=== PATIENT | male | born 1950 | race Caucasian/White ===

== ENCOUNTER → 2022-01-19 14:54 | Outpatient (BNVA) | payer MEDICARE, SELFPAY | PROVIDERS: PCP Internal Medicine; Visit Provider Psychiatry & Neurology Neurology | DX: R52 Pain, unspecified (principal); E11.40 Type 2 diabetes mellitus with diabetic neuropathy, unspecified | CPT/HCPCS: 99202 ==

== ENCOUNTER → 2022-02-21 08:18 | Outpatient (BNVA) | payer MEDICARE, SELFPAY | PROVIDERS: PCP Internal Medicine; Visit Provider Nurse Practitioner Family | DX: M54.14 Radiculopathy, thoracic region (principal); M47.814 Spondylosis without myelopathy or radiculopathy, thoracic region; E11.40 Type 2 diabetes mellitus with diabetic neuropathy, unspecified | CPT/HCPCS: 99202 ==

== ENCOUNTER → 2022-04-27 09:59 | Outpatient (BNVA) | payer MEDICARE, SELFPAY | PROVIDERS: PCP Internal Medicine; Visit Provider Psychiatry & Neurology Neurology | DX: E11.40 Type 2 diabetes mellitus with diabetic neuropathy, unspecified (principal); M47.814 Spondylosis without myelopathy or radiculopathy, thoracic region; M54.14 Radiculopathy, thoracic region | CPT/HCPCS: 99212 ==

== ENCOUNTER → 2022-05-11 11:20 | Outpatient (BNVA) | payer MEDICARE, SELFPAY | PROVIDERS: PCP Internal Medicine; Visit Provider Internal Medicine | DX: M79.18 Myalgia, other site (principal); G58.8 Other specified mononeuropathies; M47.814 Spondylosis without myelopathy or radiculopathy, thoracic region; E11.40 Type 2 diabetes mellitus with diabetic neuropathy, unspecified | CPT/HCPCS: 20552; 20553; 99202; J2795 ==

== ENCOUNTER → 2022-09-07 09:03 | Outpatient (BNVA) | payer MEDICARE, SELFPAY | PROVIDERS: PCP Internal Medicine; Visit Provider Internal Medicine | DX: M54.14 Radiculopathy, thoracic region (principal); E11.40 Type 2 diabetes mellitus with diabetic neuropathy, unspecified | CPT/HCPCS: 99212 ==

== ENCOUNTER 2023-02-20 10:06 | Day surgery (SDC) | payer MEDICARE, SELFPAY ==
[2023-02-15 14:37] VITALS: BMI 26.5
--- NOTE | 2023-02-19 09:40 | HO.ANESPROP2 ---
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 (Acute) Past Medical History Medical History (Updated 02/15/23 @ 14:35 by Elizabeth Hester RN) Anemia Arthritis CKD (chronic kidney disease) Diabetes Elevated cholesterol Lumbar spondylosis Neuropathy, diabetic Prostate cancer Family History Family History Father Diabetes Skin cancer (melanoma) Stroke Surgical History Surgical History History of back surgery History of lobectomy of thyroid Hx laparoscopic cholecystectomy Hx of hemorrhoidectomy Hx of prostatectomy Social History Social History Alcohol intake: never Patient Tobacco Use Status: Never used Tobacco Meds Allergies Allergy/AdvReac Type Severity Reaction Status Date / Time empagliflozin AdvReac Severe ketoacidosi Verified 09/07/22 09:09 [From Jardiance] s Home Medications Medication Instructions Recorded Confirmed Last Taken Type acetaminophen 325 mg tablet 325 mg PO QID PRN Pain 01/19/22 02/15/23 Unknown History atorvastatin 40 mg tablet (Lipitor) 40 mg PO BEDTIME 01/19/22 02/15/23 Unknown History blood sugar diagnostic (Accutrend 01/19/22 04/27/22 Unknown History Glucose test strips) blood-glucose meter (Accu-Chek 01/19/22 04/27/22 Unknown History Guide Glucose Meter) cholecalciferol (vitamin D3) 50 50 mcg PO DAILY 01/19/22 02/15/23 Unknown History mcg (2,000 unit) capsule coenzyme Q10 75 mg capsule (Ultra 300 mg PO DAILY 01/19/22 02/15/23 Unknown History CoQ10) gabapentin 600 mg tablet 600 mg PO BID 01/19/22 02/15/23 Unknown History insulin glargine 100 unit/mL (3 22 unit subcut BID 01/19/22 02/15/23 Unknown History mL) subcutaneous pen (Lantus Solostar U-100 Insulin) pen needle, diabetic 31 gauge x 01/19/22 04/27/22 Unknown History 1/4 (1st Tier Unifine Pentips Plus) semaglutide 1 mg/dose (4 mg/3 mL) 0.5 mg subcut QWEEK 01/19/22 02/15/23 Unknown History subcutaneous pen injector tafluprost (PF) 0.0015 % eye drops 1 drp ophthalmic (eye) .twiceaday 01/19/22 02/15/23 Unknown History in a dropperette (Zioptan (PF)) fluoride (sodium) 1.1 % dental 1 appl PO BID 04/27/22 02/15/23 Unknown History cream (Denta 5000 Plus) lidocaine 5 % topical patch 1 patch topical DAILY 04/27/22 02/15/23 Unknown History vitamin B complex (B 1 tab PO DAILY 04/27/22 02/15/23 Unknown History Complex-Vitamin B12 tablet) venlafaxine 37.5 mg 37.5 mg PO DAILY 09/07/22 02/15/23 Unknown History capsule,extended release 24 hr Exam Exam Date and Time: February 19, 2023 0940 Height,Weight and Vital Signs: Height 5 ft 10 in Weight 83.915 kg Assessment and Plan Assessment Anesthesia Assessment: Chart Reviewed
--- NOTE | ~2023-02-20 | FL_ITS ---
EXAMINATION: XR FLUOROSCOPY WITH IMAGES CLINICAL INFORMATION: Spinal STIM trial. COMPARISON: None available. TECHNIQUE: Fluoroscopy Supervised By: Dr. Jack Allison. Fluoroscopy Time: 3.6 minutes. Cumulative Dose: 82.3 mGy. DAP: 9.19 Gycm2. Images: 2. FINDINGS: There are 2 digital images of thoracic spine revealing posterior epidural electrodes at T8 and T9 vertebra respectively. There is loss of disc height with spondylosis in mid and lower dorsal spine. No lytic or sclerotic process seen. FL/FL guidance in OR IMPRESSION: 1. Posterior epidural electrodes at T8 and T9 vertebra. 2. Degenerative disc changes with spondylosis in mid and lower dorsal spine. 3. Fluoroscopy guidance was provided to referring physician during pain management.
--- NOTE | 2023-02-20 11:17 | HO.ANESPROP2 ---
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 (Acute) Past Medical History Medical History (Updated 02/15/23 @ 14:35 by Elizabeth Hester RN) Anemia Arthritis CKD (chronic kidney disease) Diabetes Elevated cholesterol Lumbar spondylosis Neuropathy, diabetic Prostate cancer Family History Family History Father Diabetes Skin cancer (melanoma) Stroke Family history of problems with anesthesia: No Surgical History Surgical History History of back surgery History of lobectomy of thyroid Hx laparoscopic cholecystectomy Hx of hemorrhoidectomy Hx of prostatectomy History of Problems with Anesthesia: No Social History Social History Alcohol intake: never Patient Tobacco Use Status: Never used Tobacco Meds Allergies Allergy/AdvReac Type Severity Reaction Status Date / Time empagliflozin AdvReac Severe ketoacidosi Verified 02/20/23 11:14 [From Jardiance] s Active Medications: Current Medications Lactated Ringer's (Lr) 1,000 mls @ 100 mls/hr IVCONT .Q10H [facility] Home Medications Medication Instructions Recorded Confirmed Last Taken Type acetaminophen 325 mg tablet 325 mg PO QID PRN Pain 01/19/22 02/15/23 Unknown History atorvastatin 40 mg tablet (Lipitor) 40 mg PO BEDTIME 01/19/22 02/15/23 Unknown History blood sugar diagnostic (Accutrend 01/19/22 04/27/22 Unknown History Glucose test strips) blood-glucose meter (Accu-Chek 01/19/22 04/27/22 Unknown History Guide Glucose Meter) cholecalciferol (vitamin D3) 50 50 mcg PO DAILY 01/19/22 02/15/23 Unknown History mcg (2,000 unit) capsule coenzyme Q10 75 mg capsule (Ultra 300 mg PO DAILY 01/19/22 02/15/23 Unknown History CoQ10) gabapentin 600 mg tablet 600 mg PO BID 01/19/22 02/15/23 Unknown History insulin glargine 100 unit/mL (3 22 unit subcut BID 01/19/22 02/15/23 Unknown History mL) subcutaneous pen (Lantus Solostar U-100 Insulin) pen needle, diabetic 31 gauge x 01/19/22 04/27/22 Unknown History 1/4 (1st Tier Unifine Pentips Plus) semaglutide 1 mg/dose (4 mg/3 mL) 0.5 mg subcut QWEEK 01/19/22 02/15/23 Unknown History subcutaneous pen injector tafluprost (PF) 0.0015 % eye drops 1 drp ophthalmic (eye) .twiceaday 01/19/22 02/15/23 Unknown History in a dropperette (Zioptan (PF)) fluoride (sodium) 1.1 % dental 1 appl PO BID 04/27/22 02/15/23 Unknown History cream (Denta 5000 Plus) lidocaine 5 % topical patch 1 patch topical DAILY 04/27/22 02/15/23 Unknown History vitamin B complex (B 1 tab PO DAILY 04/27/22 02/15/23 Unknown History Complex-Vitamin B12 tablet) venlafaxine 37.5 mg 37.5 mg PO DAILY 09/07/22 02/15/23 Unknown History capsule,extended release 24 hr Exam Exam Date and Time: February 20, 2023 1117 Height,Weight and Vital Signs: Height 5 ft 10 in Weight 83.915 kg Airway Mallampati Class: II TM Dist: >3cm Neck ROM: Full Assessment and Plan Assessment Anesthesia Assessment: Anesthesia Plan Discussed and Chart Reviewed Final Anesthetic Review Family History of Problems with Anesthesia: No History of Problems with Anesthesia: No NPO: Yes ASA Class: III Final Preanesthetic Review: No Changes in Pt Med Stat, Meds/Allgs Chart Reviewed, Consent Obtained/Reviewed and Anes Risks/Benef Reviewed Patient Risk: Intermediate Procedure Risk: Low Anesthetic Plan Anesthetic Plan: MAC: Disposition: Standard PACU
[2023-02-20 11:24] LABS: Hematocrit 41.8 % (42.0-52.0); Hemoglobin 13.9 g/dl (14.0-18.0); Mean Corpuscular HGB Conc 33.3 g/dl (31.0-36.0); Mean Corpuscular Volume 87.3 fL (80.0-98.0); Mean Platelet Volume 10.6 fL (9.4-12.4); Platelet Count 198 X10*3/uL (160-400); Red Blood Count 4.79 X10*6/uL (4.60-5.80); Red Cell Distribution Width 12.6 % (11.0-16.0); White Blood Count 8.3 X10*3/uL (4.8-10.8)
[2023-02-20 11:32] VITALS: BP 154/92; PULSE 68; RESP 16; TEMP 36.4; O2SAT 98
[2023-02-20 11:47] LABS: Anion Gap 13 (12-20); Blood Urea Nitrogen 31 mg/dL (9-16); Calcium 10.3 mg/dL (8.4-10.2); Carbon Dioxide 27 mmol/L (22-29); Chloride 107 mmol/L (96-108); Estimated Glomerular Filt Rate 39; Glucose Fasting 131 mg/dL (60-99); Potassium 4.6 mmol/L (3.3-5.1); Sodium 142 mmol/L (135-145)
[2023-02-20 11:48] LABS: Glucose, Whole Blood 142 mg/dL (60-115)
[2023-02-20 12:42] LABS: MRSA Nasal PCR NEGATIVE (Negative); SA Nasal PCR NEGATIVE (Negative)
--- NOTE | 2023-02-20 12:58 | MHC.SHP ---
Pre-Procedural Eval Section A Date of Service: 02/20/23 The patient is an INPATIENT: No Changes since office visit: Yes Patient answered all questions The History & Physical has been completed within 30 days and I have reviewed it.: No Section B Chief Complaint: Type 2 diabetes mellitus with diabetic neuropathy, Relevant Family History (Specify if Yes): No Relevant Social History: None Present Medications: see Short Stay Collaborative assessment Medical History: Significant History (Painful diabetic neuropathy) History of Previous Operations: No relevant previous surgery Allergies: Allergies Allergy/AdvReac Type Severity Reaction Status Date / Time empagliflozin AdvReac Severe ketoacidosi Verified 02/20/23 11:14 [From Sheldon] s Review of Systems Sugical H&P ROS: Negative: Constitution, Cardiovascular and Respiratory Exam Surgical H&P Exam: Normal: HEENT, Normal: Heart and Normal: Lungs Plan Diagnosis/Plan: Unchanged I have reviewed the history and physical and performed a pertinent physical examination on my patient. No changes have occurred unless specified. Proceed with trial of thoracolumbar spinal cord stimulation for painful diabetic neuropathy and intractable thoracic radiculopathy. Time Spent With Patient Time: Total time managing care of this patient today ____ minutes.
[2023-02-20 15:05] VITALS: BP 146/72; PULSE 67; RESP 14; TEMP 36.3; O2SAT 100
[2023-02-20 15:20] VITALS: BP 157/73; PULSE 64; RESP 16; TEMP 36.3; O2SAT 95
--- NOTE | 2023-02-20 16:47 | P.BOP_ITS ---
Brief Operative Note Date of Service: 02/20/23 Pre-op diagnosis: Painful diabetic neuropathy Post-op diagnosis: same Procedure: Spinal cord stimulation trial Implants: Nevro HFX SCS trial leads Surgeon: Jack Allison MD Anesthesia: MAC Was an Concrete Bucket Hooker used for this Procedure?: No Estimated blood loss (mL): 2 Pathology: none sent Condition: stable Disposition: PACU
--- NOTE | 2023-02-20 16:48 | W.PM.OPN ---
Operative Note Operative Note Date of Service: 02/20/23 Narrative: Percutaneous Spinal Cord Stimulator Trial, Lumbar After obtaining written consent, pre-procedure blood pressure and heart rate were recorded and are in the nursing record for review. A peripheral IV was started. Antibiotics, cefazolin 2 gram, were given intraoperatively. The patient was placed in a prone position.?The patient was sedated by the anesthesiologist. The thoracolumbar area was widely prepped with ChloraPrep, allowed to dry and draped in sterile fashion. Fluoroscopy was used to identify the L1/L2 interlaminar spaces and appropriate needle insertion sites. The skin and subcutaneous tissue was anesthetized with 0.5% lidocaine. Two separate 14 gauge coude epidural needles were then advanced from this point in a paramedian approach to the epidural space opening at T12/L1 interspace, where loss of resistance was found using air. No paresthesias were elicited with needle placement. No CSF or heme was present upon needle placement. A guide wire was then used to confirm placement into the epidural space at each level under live fluoroscopy. The 1x8 stimulator lead wire was then threaded to the top of T8 in the left parasagittal position. The 2nd lead was threaded in the right parasagittal position such that the bottom electrode was at the top of T12. The leads advanced midline and dorsally.?The needles were then completely removed under live fluoroscopy. The stimulator wires were then secured with 2-0 silk sutures to the skin, followed by Exofin, steristrips, gauze and tegaderm for skin dressing. The patient tolerated the procedure well and no complications were encountered. Following the procedure the patient's vital signs were stable. The patient was discharged home in good condition after being given discharge instructions. Time Out: Immediately prior to the procedure, the following was verbally confirmed that there is a signed consent form and that the correct patient, planned procedure, site and side are consistent with documentation and that necessary equipment and/or blood products are available prior to the start of the case. Complications: none EBL: <2 cc
== END 2023-02-20 15:35 | disposition home or self-care (01) ==
PROVIDERS: Nurse Practitioner; Registered Nurse Emergency; PCP Internal Medicine; Visit Provider Internal Medicine
PROC: (CPT 63650; principal; 2023-02-20 11:40)
DX: E11.40 Type 2 diabetes mellitus with diabetic neuropathy, unspecified (principal); M54.14 Radiculopathy, thoracic region; M79.606 Pain in leg, unspecified; E11.22 Type 2 diabetes mellitus with diabetic chronic kidney disease; N18.9 Chronic kidney disease, unspecified; M47.816 Spondylosis without myelopathy or radiculopathy, lumbar region; M19.90 Unspecified osteoarthritis, unspecified site; Z79.4 Long term (current) use of insulin; Z79.899 Other long term (current) drug therapy; Z88.8 Allergy status to other drugs, medicaments and biological substances; Z98.890 Other specified postprocedural states; C61 Malignant neoplasm of prostate
CPT/HCPCS: 63650 ×2; 36415; 80048; 82947; 85027; 87640; 87641; C1897; J0690; J2250; J2795

== ENCOUNTER → 2023-02-20 10:06 | Outpatient (BNV) | payer MEDICARE, SELFPAY | PROVIDERS: PCP Internal Medicine; Visit Provider Internal Medicine | DX: E11.40 Type 2 diabetes mellitus with diabetic neuropathy, unspecified (principal) | CPT/HCPCS: 63650 ==

== ENCOUNTER 2023-02-26 09:39 | Outpatient (AMB) | payer MEDICARE, SELFPAY ==
--- NOTE | 2023-02-26 10:04 | MHC.OFFVIS ---
Intake Vital Signs 02/26/23 10:05 Height 5 ft 10 in Weight 184 lb 8 oz BMI 26.5 BP 136/61 Blood Pressure Location Lt brachial Position Sitting Respiration 14 Pulse 68 Pulse Source Pulse Oximeter Pulse Oximetry (%) 99 Oxygen Delivery Method Room Air Intake Visit Reasons: s/p Lumbar SCS Trial 02/20/23 Allergies empagliflozin [From Jardiance] Adverse Reaction (Severe, Verified 02/26/23 10:07) ketoacidosis HPI HPI Comments History of Present Illness Details Nahid is a very pleasant 72 year old male who presents to the office today accompanied by his for follow up s/p nevro SCS trial 02/20/2023. Nevro rep was not available/present during visit today. Patient reports pain today is 03/24, he did not receive any pain relief during the trial for either his diabetic peripheral neuropathy or his thoracic back pain. Prior: Patient is a 71-year-old male presenting for follow-up discussion regarding spinal cord stimulation with questions regarding the procedure. The patient denies having any benefit from the trigger point injection that was done for potential entrapment of the anterior cutaneous nerve. He continues to have significant lower extremity in for pain secondary to diabetic neuropathy. He is primarily concerned of spinal cord stimulation is going to be helpful for his thoracic spine related pain that is radicular in nature. [facility] Medical History (Updated 02/20/23 @ 11:19 by Mary Ellen Engle RN) Anemia Arthritis CKD (chronic kidney disease) Diabetes Elevated cholesterol Lumbar spondylosis Neuropathy, diabetic Prostate cancer Surgical History History of back surgery History of lobectomy of thyroid Hx laparoscopic cholecystectomy Hx of hemorrhoidectomy Hx of prostatectomy Family History Father Diabetes Skin cancer (melanoma) Stroke Social History Alcohol intake: never Patient Tobacco Use Status: Never used Tobacco Review of Systems Const All systems reviewed & are unremarkable except as noted in HPI and below Physical Exam Vital Signs: Last Vital Signs Pulse 68 02/26/23 10:05 Resp 14 02/26/23 10:05 BP 136/61 02/26/23 10:05 Pulse Ox 99 02/26/23 10:05 Oxygen Delivery Method Room Air 02/26/23 10:05 BMI result Body Mass Index 26.5 General: Appears afebrile. Alert and oriented. Mood and affect appropriate. Follows and participates in conversation appropriately. Respiratory effort is unlabored. Able to transition from sit to stand unassisted. Ambulates with bilaterally normal heel strike and toe off. Nevro SCS removal: Area was cleansed with chloraprep, dressing was taken down, insertion site was visualized and without redness/irritation/drainage. Sutures were then removed and both leads withdrawn without resistance; leads examined and noted to be without concern, tips intact. Area cleansed again, bacitracin dressing was applied and covered with tegaderm. Assessment & Plan Assessment & Plan (1) Painful diabetic neuropathy: Code(s): E11.40 - Type 2 diabetes mellitus with diabetic neuropathy, unspecified (2) Thoracic radiculitis: Code(s): M54.14 - Radiculopathy, thoracic region Plan Patient did not receive adequate pain relief during SCS trial. Leads were removed today, incision sites without signs of infection. Patient will not be proceeding with Nevro SCS implant d/t inadequate pain relief. Discussed options for treatment today including Qutenza and SCS with [facility]. Pamphlets provided to patient. Patient would like to follow up in the office with Dr. Allison prior to committing to another SCS trial. Follw up with Dr. Allison as planned. Coding Level of Care Code Global (51687) Diagnoses Painful diabetic neuropathy E11.40 Thoracic radiculitis M54.14
[2023-02-26 10:05] VITALS: BP 136/61; PULSE 68; RESP 14; O2SAT 99; BMI 26.5
== END 2023-02-26 10:26 | disposition home or self-care (01) ==
PROVIDERS: PCP Internal Medicine; Visit Provider Registered Nurse Emergency
DX: M54.14 Radiculopathy, thoracic region (principal); E11.40 Type 2 diabetes mellitus with diabetic neuropathy, unspecified
CPT/HCPCS: 99024

== ENCOUNTER → 2023-02-26 09:39 | Outpatient (BNVA) | payer MEDICARE, SELFPAY | PROVIDERS: PCP Internal Medicine; Visit Provider Registered Nurse Emergency ==

== ENCOUNTER 2023-03-08 09:52 | Outpatient (AMB) | payer MEDICARE, SELFPAY ==
[2023-03-08 09:53] VITALS: BP 116/64; PULSE 61; RESP 14; O2SAT 100; BMI 26.4
--- NOTE | 2023-03-08 09:53 | MHC.OFFVIS ---
Intake Vital Signs 03/08/23 09:53 Height 5 ft 10 in Weight 184 lb BMI 26.4 BP 116/64 Blood Pressure Location Lt brachial Position Sitting Respiration 14 Pulse 61 Pulse Source Pulse Oximeter Pulse Oximetry (%) 100 Oxygen Delivery Method Room Air Intake Visit Reasons: Follow Up per Tate Greenfield Allergies empagliflozin [From Jardiance] Adverse Reaction (Severe, Verified 03/08/23 09:54) ketoacidosis Medication List - Last Reconciled 03/08/23 by Martha Payan LPN acetaminophen 325 mg PO QID PRN atorvastatin (Lipitor) 40 mg PO BEDTIME blood sugar diagnostic (Accutrend Glucose test strips) As directed blood-glucose meter (Accu-Chek Guide Glucose Meter) As directed cholecalciferol (vitamin D3) 50 mcg PO DAILY coenzyme Q10 (Ultra CoQ10) 300 mg PO DAILY fluoride (sodium) 1.1% (Denta 5000 Plus) 1 appl PO BID gabapentin 600 mg PO BID insulin glargine (Lantus Solostar U-100 Insulin) 22 units subcut BID lidocaine 5% 1 patch topical DAILY pen needle, diabetic (1st Tier Unifine Pentips Plus) As directed semaglutide 0.5 mg subcut QWEEK tafluprost (PF) (Zioptan (PF)) 1 drp ophthalmic (eye) .twiceaday HPI Follow Up per Tate Greenfield HPI Details 72-year-old male is presenting today for a follow-up of mid-back pain and foot pain. The patient reports no relief status post-Nervo percutaneous spinal cord stimulator implant trial for either his diabetic peripheral neuropathy or his thoracic back pain. He reports pain in his mid-back region, which he describes as a tight band around his thoracic region. ? He inquired and interested about trying Qutenza patches for foot pain. He visited his primary care physician in [place]. Per the primary care physician, the patient's abdominal symptoms are secondary to post-herpetic neuralgia. The patient denies any history of shingles in the past. He has tried capsaicin cream but has not tolerated it well. Past procedures: 02/20/23: Percutaneous Spinal Cord Stimulator Trial, Lumbar: no relief. 05/14/22: Trigger point injections, bilateral: no relief. [facility] Medical History (Updated 02/20/23 @ 11:19 by Mary Ellen Engle RN) Anemia Arthritis CKD (chronic kidney disease) Diabetes Elevated cholesterol Lumbar spondylosis Neuropathy, diabetic Prostate cancer Surgical History History of back surgery History of lobectomy of thyroid Hx laparoscopic cholecystectomy Hx of hemorrhoidectomy Hx of prostatectomy Family History Father Diabetes Skin cancer (melanoma) Stroke Social History Alcohol intake: never Patient Tobacco Use Status: Never used Tobacco Review of Systems Const All systems reviewed & are unremarkable except as noted in HPI and below Physical Exam Vital Signs: Last Vital Signs Pulse 61 03/08/23 09:53 Resp 14 03/08/23 09:53 BP 116/64 03/08/23 09:53 Pulse Ox 100 03/08/23 09:53 Oxygen Delivery Method Room Air 03/08/23 09:53 BMI result Body Mass Index 26.4 General: Appears afebrile. Alert and oriented. Mood and affect appropriate. Follows and participates in conversation appropriately. Respiratory effort is unlabored. Able to transition from sit to stand unassisted. Ambulates with bilaterally normal heel strike and toe off. Results Reviewed Results Reviewed: No imaging is available for review. Assessment & Plan Assessment & Plan (1) Diabetic neuropathy: Code(s): E11.40 - Type 2 diabetes mellitus with diabetic neuropathy, unspecified (2) Thoracic radiculitis: Code(s): M54.14 - Radiculopathy, thoracic region Plan Discussed spinal cord stimulator ([employer]tr[employer]) vs. peripheral nerve stimulator for thoracic radicular symptoms in the future. The patient would like to hold off on it for now, and he will get back to us when he is ready to move forward. Will start with the trial of topical capsaicin 8% treatment for his diabetic neuropathy in his feet. Patient is previously exhausted high-dose gabapentin and trial of spinal cord stimulation without relief. Scribed for Dr. Allison by Qamar Masterson, medical technical writer, on 03/08/2023. I, Dr. Allison, have personally reviewed and agree with the information entered by the scribe. Coding Level of Care Code Est Pt Level 3 (57377) Diagnoses Diabetic neuropathy E11.40 Thoracic radiculitis M54.14
== END 2023-03-08 10:34 | disposition home or self-care (01) ==
PROVIDERS: PCP Internal Medicine; Visit Provider Internal Medicine
DX: E11.40 Type 2 diabetes mellitus with diabetic neuropathy, unspecified (principal); M54.14 Radiculopathy, thoracic region
CPT/HCPCS: 99213

== ENCOUNTER → 2023-03-08 09:52 | Outpatient (BNVA) | payer MEDICARE, SELFPAY | PROVIDERS: PCP Internal Medicine; Visit Provider Internal Medicine | DX: M54.14 Radiculopathy, thoracic region (principal); E11.40 Type 2 diabetes mellitus with diabetic neuropathy, unspecified | CPT/HCPCS: 99212 ==

== ENCOUNTER 2023-04-01 09:52 | Outpatient (AMB) | payer MEDICARE, SELFPAY ==
[2023-04-01 09:59] VITALS: BP 135/65; PULSE 103; RESP 14; O2SAT 97; BMI 25.8
--- NOTE | 2023-04-01 09:59 | MHC.OFFVIS ---
Intake Vital Signs 04/01/23 09:59 04/01/23 10:24 04/01/23 10:43 Height 5 ft 10 in Weight 180 lb BMI 25.8 BP 135/65 124/62 118/62 Blood Pressure Location Lt brachial Lt brachial Lt brachial Position Sitting Sitting Sitting Respiration 14 Pulse 103 H 69 68 Pulse Source Pulse Oximeter Pulse Oximeter Pulse Oximeter Pulse Oximetry (%) 97 Oxygen Delivery Method Room Air Intake Visit Reasons: Qutenza - DN Allergies empagliflozin [From Jardiance] Adverse Reaction (Severe, Verified 04/01/23 09:59) ketoacidosis Medication List - Last Reconciled 04/01/23 by Martha Payan LPN acetaminophen 325 mg PO QID PRN atorvastatin (Lipitor) 40 mg PO BEDTIME blood sugar diagnostic (Accutrend Glucose test strips) As directed blood-glucose meter (Accu-Chek Guide Glucose Meter) As directed cholecalciferol (vitamin D3) 50 mcg PO DAILY coenzyme Q10 (Ultra CoQ10) 300 mg PO DAILY fluoride (sodium) 1.1% (Denta 5000 Plus) 1 appl PO BID gabapentin 600 mg PO BID insulin glargine (Lantus Solostar U-100 Insulin) 22 units subcut BID lidocaine 5% 1 patch topical DAILY lidocaine-prilocaine 2.5-2.5 % 1 appl topical ONCE pen needle, diabetic (1st Tier Unifine Pentips Plus) As directed semaglutide 0.5 mg subcut QWEEK tafluprost (PF) 0.0015% (Zioptan (PF)) 1 drp ophthalmic (eye) .twiceaday HPI Qutenza - DN HPI Details 72-year-old male who presents today to the office for topical capsaicin 8% patch application. Denies any recent cough, cold, infection, fever or other significant changes in medical history since last office visit. Past procedures: 02/20/23: Percutaneous Spinal Cord Stimulator Trial, Lumbar: no relief. 05/14/22: Trigger point injections, bilateral: no relief. [facility] Medical History (Updated 04/01/23 @ 15:11 by Jack Allison MD) Elevated cholesterol Lumbar spondylosis Prostate cancer Neuropathy, diabetic CKD (chronic kidney disease) Arthritis Diabetes Anemia Surgical History Hx laparoscopic cholecystectomy History of back surgery Hx of hemorrhoidectomy Hx of prostatectomy History of lobectomy of thyroid Family History Father Diabetes Skin cancer (melanoma) Stroke Social History Alcohol intake: never Patient Tobacco Use Status: Never used Tobacco Review of Systems Const All systems reviewed & are unremarkable except as noted in HPI and below Physical Exam Vital Signs: Last Vital Signs Pulse 68 04/01/23 10:43 Resp 14 04/01/23 09:59 BP 118/62 04/01/23 10:43 Pulse Ox 97 04/01/23 09:59 Oxygen Delivery Method Room Air 04/01/23 09:59 BMI result Body Mass Index 25.8 General: Appears afebrile. Alert and oriented. Mood and affect appropriate. Follows and participates in conversation appropriately. Respiratory effort is unlabored. Able to transition from sit to stand unassisted. Ambulates with bilaterally normal heel strike and toe off. Office Procedures Topical Capsaicin Date(s) of prior application(s): EMLA Cream (lidocaine 2.5% and prilocaine 2.5%) was applied at home by patient prior to application of the patches. The patient tolerated the procedure well. Patient's vitals signs remained stable throughout the procedure. Patient was able to complete the stipulated 30 minutes of the therapeutic application without any discomfort. Date 1:: 04/01/23 Laterality: Bilateral Location of left foot pain: Anterior, Posterior, Plantar, Proximal, Dorsal, Medial, Lateral and Distal Location of right foot pain: Anterior, Posterior, Plantar, Proximal, Dorsal, Medial, Lateral and Distal Quality of pain: Burning Details:: EMLA Cream (lidocaine 2.5% and prilocaine 2.5%) was applied at home by patient prior to application of the patches. The patient tolerated the procedure well. Patient's vitals signs remained stable throughout the procedure. Patient was able to complete the stipulated 30 minutes of the therapeutic application without any discomfort. Office Meds capsaicin-skin cleanser 8 % topical kit Performing Provider: Jack Allison MD Performing Location: [facility] [place] [facility] Administered by: Jack Allison MD on 09/18/23 15:09 Dose Route Admin Location Dispensed Lot Number Expiration Date [facility] Firing Pin Gauger 1 ea topical 1 ea [id number] 07/15/25 Results Reviewed Results Reviewed: No imaging is available for review. Lot No: [id number] Exp Dt. 08/09 Assessment & Plan Assessment & Plan (1) Diabetic neuropathy: Code(s): E11.40 - Type 2 diabetes mellitus with diabetic neuropathy, unspecified Qualifiers: Diabetes mellitus complication detail: diabetic polyneuropathy Diabetes mellitus type: type 2 Qualified Code(s): E11.42 - Type 2 diabetes mellitus with diabetic polyneuropathy Plan Patient is status post 30-minute application of topical capsaicin 8% today at the clinic. Patient tolerated procedure well and was discharged home in stable condition with discharge instructions. All questions were answered. The patient will follow up in three months or sooner if needed. More than 40 minutes were spent for this encounter. Scribed for Dr. Allison by Qamar Masterson, medical support assistant, on 04/01/2023. I, Dr. Allison, have personally reviewed and agree with the information entered by the scribe. Orders: Orders AMB Capsaicin Patch - Practice Supplied Today E11.40 - Type 2 diabetes mellitus with diabetic neuropathy, unspecified Coding Level of Care Code Procedure Only Diagnoses Diabetic polyneuropathy associated with type 2 diabetes mellitus E11.42 Diabetes mellitus complication detail: diabetic polyneuropathy Diabetes mellitus type: type 2
[2023-04-01 10:24] VITALS: BP 124/62; PULSE 69
[2023-04-01 10:43] VITALS: BP 118/62; PULSE 68
== END 2023-04-01 10:45 | disposition home or self-care (01) ==
PROVIDERS: PCP Internal Medicine; Visit Provider Internal Medicine
DX: E11.40 Type 2 diabetes mellitus with diabetic neuropathy, unspecified (principal)
CPT/HCPCS: 17999; 99215

== ENCOUNTER → 2023-04-01 09:52 | Outpatient (BNVA) | payer MEDICARE, SELFPAY | PROVIDERS: PCP Internal Medicine; Visit Provider Internal Medicine | DX: E11.42 Type 2 diabetes mellitus with diabetic polyneuropathy (principal) | CPT/HCPCS: 17999; 99212; J7336 ==

== ENCOUNTER 2023-07-01 10:24 | Outpatient (AMB) | payer MEDICARE, SELFPAY ==
--- NOTE | 2023-07-01 10:26 | MHC.OFFVIS ---
Intake Vital Signs 07/01/23 10:27 07/01/23 10:50 07/01/23 11:18 Height 5 ft 10 in Weight 180 lb BMI 25.8 BP 117/61 130/63 Blood Pressure Location Lt brachial Lt brachial Lt brachial Position Sitting Sitting Sitting Respiration 12 Pulse 88 74 Pulse Source Pulse Oximeter Pulse Oximeter Pulse Oximeter Intake Visit Reasons: QUTENZA-DN/confirmed Allergies empagliflozin [From Jardiance] Adverse Reaction (Severe, Verified 07/01/23 10:36) ketoacidosis HPI QUTENZA-DN/confirmed HPI Details 72-year-old male who presents today to the office for topical capsaicin 8% patch application. Denies any recent cough, cold, infection, fever or other significant changes in medical history since last office visit. The patient reports bilateral back and abdominal pain that makes it feel as if he is having trouble breathing. His pain is localized in the midback region. His pain appears to have started after a cholecystectomy, and since then, it has gotten worse. He rates his pain at 10/10 in intensity. He reports tightness around his chest, which is worse with deep breathing. He has a feeling that ?something is stuck in his back? when he sits or lays down at night. He has a history of DM. He states that his blood sugar level is usuallyWNL. Past procedures: 04/01/23: 30-minute application of topical capsaicin 8%: no relief yet. 02/20/23: Percutaneous Spinal Cord Stimulator Trial, Lumbar: no relief. 05/14/22: Trigger point injections, bilateral: no relief. [facility] Medical History (Updated 04/01/23 @ 15:11 by Jack Allison MD) Elevated cholesterol Lumbar spondylosis Prostate cancer Neuropathy, diabetic CKD (chronic kidney disease) Arthritis Diabetes Anemia Surgical History Hx laparoscopic cholecystectomy History of back surgery Hx of hemorrhoidectomy Hx of prostatectomy History of lobectomy of thyroid Family History Father Diabetes Skin cancer (melanoma) Stroke Social History Alcohol intake: never Patient Tobacco Use Status: Never used Tobacco Review of Systems Const All systems reviewed & are unremarkable except as noted in HPI and below Physical Exam Vital Signs: Last Vital Signs Pulse 74 07/01/23 11:18 Resp 12 07/01/23 10:27 BP 130/63 07/01/23 11:18 BMI result Body Mass Index 25.8 General: Appears afebrile. Alert and oriented. Mood and affect appropriate. Follows and participates in conversation appropriately. Respiratory effort is unlabored. Able to transition from sit to stand unassisted. Ambulates with bilaterally normal heel strike and toe off. No tenderness to palpation in the thoracolumbar. It is fine in the midline. Office Procedures Topical Capsaicin Date 1:: 04/01/23 Laterality: Bilateral Location of left foot pain: Anterior, Posterior, Plantar, Proximal, Dorsal, Medial, Lateral and Distal Location of right foot pain: Anterior, Posterior, Plantar, Proximal, Dorsal, Medial, Lateral and Distal Quality of pain: Burning, Throbbing and Gnawing Details:: EMLA Cream (lidocaine 2.5% and prilocaine 2.5%) was applied at home by patient prior to application of the patches. The patient tolerated the procedure well. Patient's vitals signs remained stable throughout the procedure. Patient was able to complete the stipulated 30 minutes of the therapeutic application without any discomfort. Office Meds capsaicin-skin cleanser 8 % topical kit Performing Provider: Jack Allison MD Performing Location: [facility] [place] [facility] Administered by: Jack Allison MD on 07/02/23 11:27 Dose Route Admin Location Dispensed Lot Number Expiration Date [facility] Frame Builder 1 ea topical 1 ea [id number] 07/15/25 Results Reviewed Results Reviewed: No imaging is available for review. Assessment & Plan Assessment & Plan (1) Painful diabetic neuropathy: Code(s): E11.40 - Type 2 diabetes mellitus with diabetic neuropathy, unspecified (2) Thoracic radiculitis: Code(s): M54.14 - Radiculopathy, thoracic region Plan Patient is status post second round of 30-minute application of topical capsaicin 8% today at the clinic. We will observe how he does after 2 rounds of application in terms of pain relief. Patient tolerated procedure well and was discharged home in stable condition with discharge instructions. All questions were answered. The patient will follow up in three months or sooner if needed. We discussed intrathecal pain pump as a possible treatment option for the thoracic radicular and abdominal symptoms. It is unclear if this is visceral pain syndrome, given the tightness. A device brochure was provided to the patient. The patient will think about it and inform us after the third round of Qutenza patch treatment about whether he would like to proceed with the ITP. For now we will plan on a 3rd round of Qutenza application in 3 months. More than 40 minutes were spent for this encounter. Scribed for Dr. Allison by Qamar Masterson, certified medical coding specialist, on 07/01/2023. I, Dr. Allison, have personally reviewed and agree with the information entered by the scribe. Orders: Orders AMB Capsaicin Patch - Practice Supplied 07/01/23 E11.40 - Type 2 diabetes mellitus with diabetic neuropathy, unspecified Medications: Refilled lidocaine-prilocaine 2.5-2.5 % apply to both feet 1 hour prior to procedure 1 appl topical ONCE 30 grams 0RF Coding Level of Care Code Est Pt Level 5 (97752) Diagnoses Painful diabetic neuropathy E11.40 Thoracic radiculitis M54.14
[2023-07-01 10:27] VITALS: RESP 12; BMI 25.8
[2023-07-01 10:50] VITALS: BP 117/61; PULSE 88
[2023-07-01 11:18] VITALS: BP 130/63; PULSE 74
== END 2023-07-01 11:16 | disposition home or self-care (01) ==
PROVIDERS: PCP Internal Medicine; Visit Provider Internal Medicine
DX: E11.40 Type 2 diabetes mellitus with diabetic neuropathy, unspecified (principal); M54.14 Radiculopathy, thoracic region
CPT/HCPCS: 17999; 99215

== ENCOUNTER → 2023-07-01 10:24 | Outpatient (BNVA) | payer MEDICARE, SELFPAY | PROVIDERS: PCP Internal Medicine; Visit Provider Internal Medicine | DX: E11.40 Type 2 diabetes mellitus with diabetic neuropathy, unspecified (principal); M54.14 Radiculopathy, thoracic region | CPT/HCPCS: 17999; 99212; J7336 ==

== ENCOUNTER → 2023-09-30 10:54 | Outpatient (BNVA) | payer MEDICARE, SELFPAY | PROVIDERS: PCP Internal Medicine; Visit Provider Internal Medicine | DX: E11.42 Type 2 diabetes mellitus with diabetic polyneuropathy (principal); M54.14 Radiculopathy, thoracic region | CPT/HCPCS: 99212; J7336 ==

== ENCOUNTER → 2023-09-30 11:41 | Outpatient (AMB) | payer MEDICARE, SELFPAY ==
[2023-09-30 11:01] VITALS: BP 130/60; PULSE 73; RESP 12; O2SAT 100; BMI 25.8
--- NOTE | 2023-09-30 11:01 | A.OFFVIS_ITS ---
Intake Vital Signs 09/30/23 11:01 09/30/23 11:18 09/30/23 11:45 Height 5 ft 10 in Weight 180 lb BMI 25.8 BP 130/60 127/68 130/68 Blood Pressure Location Lt brachial Lt brachial Lt brachial Position Sitting Sitting Sitting Respiration 12 Pulse 73 64 80 Pulse Source Pulse Oximeter Pulse Oximeter Pulse Oximeter Pulse Oximetry (%) 100 Oxygen Delivery Method Room Air Intake Visit Reasons: QUTENZA/DN Allergies empagliflozin [From Jardiance] Adverse Reaction (Severe, Verified 09/30/23 11:02) ketoacidosis Medication List - Last Reconciled 09/30/23 by Martha Payan LPN acetaminophen 325 mg PO QID PRN atorvastatin (Lipitor) 40 mg PO BEDTIME blood sugar diagnostic (Accutrend Glucose test strips) As directed blood-glucose meter (Accu-Chek Guide Glucose Meter) As directed cholecalciferol (vitamin D3) 50 mcg PO DAILY coenzyme Q10 (Ultra CoQ10) 300 mg PO DAILY fluoride (sodium) 1.1% (Denta 5000 Plus) 1 appl PO BID gabapentin 600 mg PO BID insulin glargine (Lantus Solostar U-100 Insulin) 22 units subcut BID lidocaine 5% 1 patch topical DAILY lidocaine-prilocaine 2.5-2.5 % 1 appl topical ONCE pen needle, diabetic (1st Tier Unifine Pentips Plus) As directed semaglutide 0.5 mg subcut QWEEK tafluprost (PF) 0.0015% (Zioptan (PF)) 1 drp ophthalmic (eye) .twiceaday HPI QUTENZA/DN HPI Details 72-year-old male who presents today to t he office for a topical capsaicin 8% patch application. Denies any recent cough, cold, infection, fever or other significant changes in medical history since last office visit. The patient reports bilateral back and abdominal pain, which has not improved. He has not tried an intercostal nerve block for abdominal pain. He reports tightness around his subcostal region, which is worse with deep breathing. He still has diabetic neuropathy. He reports burning sensations and heaviness in his feet and is unable to move easily. He feels like his foot is stuck in the bucket of concrete when trying to lift it. Past procedures: 07/01/23: 30-minute application of topic al capsaicin 8%: no relief yet. 04/01/23: 30-minute application of topic al capsaicin 8%: no relief yet. 02/20/23: Percutaneous Spinal Cord Stimula tor Trial, Lumbar: no relief. 05/14/22: Trigger point injections, bila teral: no relief. [facility] Medical History (Updated 04/01/23 @ 15:11 by Jack Allison MD) Elevated cholesterol Lumbar spondylosis Prostate cancer Neuropathy, diabetic CKD (chronic kidney disease) Arthritis Diabetes Anemia Surgical History Hx laparoscopic cholecystectomy History of back surgery Hx of hemorrhoidectomy Hx of prostatectomy History of lobectomy of thyroid Family History Father Diabetes Skin cancer (melanoma) Stroke Social History Alcohol intake: never Patient Tobacco Use Status: Never used Tobacco Review of Systems Const All systems reviewed & are unremarkable except as noted in HPI and below Physical Exam Vital Signs: Last Vital Signs Pulse 64 09/30/23 11:18 Resp 12 09/30/23 11:01 BP 127/68 09/30/23 11:18 Pulse Ox 100 09/30/23 11:01 Oxygen Delivery Method Room Air 09/30/23 11:01 BMI result Body Mass Index 25.8 General: Appears afebrile. Alert and oriented. Mood and affect appropriate. Follows and participates in conversation appropriately. Respiratory effort is unlabored. Able to transition from sit to stand unassisted. Ambulates with bilaterally normal heel strike and toe off. Office Procedures Topical Capsaicin Date 1:: 04/01/23 Date 2:: 07/01/23 Date 3:: 09/30/23 Laterality: Bilateral Location of left foot pain: Anterior, Posterior, Plantar, Proximal, Dorsal, Medial, Lateral and Distal Location of right foot pain: Anterior, Posterior, Plantar, Proximal, Dorsal, Medial, Lateral and Distal Quality of pain: Nagging, Throbbing and Unbearable Details:: EMLA Cream (lidocaine 2.5% and prilocaine 2.5%) was applied at home by patient prior to application of the patches. The patient tolerated the procedure well. Patient's vitals signs remained stable throughout the procedure. Patient was able to complete the stipulated 30 minutes of the therapeutic application without any discomfort. Office Meds capsaicin-skin cleanser 8 % topical kit Performing Provider: Jack Allison MD Per[place] [facility] [place] [facility] Administered by: Martha Payan LPN on 09/30/23 11:12 Dose Route Admin Location Dispensed Lot Number Expiration Date [facility] Roll Cleaner 1 ea topical 1 ea [id number] 12/13/25 27395-867-11 [employer] Results Reviewed Results Reviewed: No imaging is available for review. Assessment & Plan Assessment & Plan (1) Diabetic neuropathy: Code(s): E11.40 - Type 2 diabetes mellitus with diabetic neuropathy, unspecified Qualifiers: Diabetes mellitus complication detail: diabetic polyneuropathy Diabetes mellitus type: type 2 Qualified Code(s): E11.42 - Type 2 diabetes mellitus with diabetic polyneuropathy (2) Thoracic radiculitis: Code(s): M54.14 - Radiculopathy, thoracic region Plan For his subcostal/abdominal wall pain, we will schedule him for bilateral diagnostic T12 intercostal nerve blocks. Discussed the risks and benefits of the procedure with the patient in detail. All questions were answered. The patient is on board with the plan. Patient is status post third round of 30-minute application of topical capsaicin 8% today at the clinic. Patient tolerated procedure well and was discharged home in stable condition with discharge instructions. All questions were answered. Unfortunately he is yet to gain meaningful relief from the capsaicin applications. If he does not get relief from the 3rd round, we will likely discontinue it going forward. I had a discussion with him regarding trial of magnetic PNS for painful diabetic neuropathy. I provided him with contact information to contact the relevant company to see if that therapy can be obtained locally. More than 40 minutes were spent for this encounter. Scribed for Dr. Allison by Qamar Masterson, medical laboratory technicians, on 09/30/2023. I, Dr. Allison, have personally reviewed and agree with the information entered by the scribe. Orders: Orders AMB Capsaicin Patch - Practice Supplied Today E11.40 - Type 2 diabetes mellitus with diabetic neuropathy, unspecified Coding Level of Care Code Est Pt Level 5 (13427) Diagnoses Diabetic polyneuropathy associated with type 2 diabetes mellitus E11.42 Diabetes mellitus complication detail: diabetic polyneuropathy Diabetes mellitus type: type 2 Thoracic radiculitis M54.14
[2023-09-30 11:18] VITALS: BP 127/68; PULSE 64
[2023-09-30 11:45] VITALS: BP 130/68; PULSE 80
== END | disposition home or self-care (01) ==
LOC: HO.PMC 10:54
PROVIDERS: PCP Internal Medicine; Visit Provider Internal Medicine
DX: E11.42 Type 2 diabetes mellitus with diabetic polyneuropathy (principal); M54.14 Radiculopathy, thoracic region
CPT/HCPCS: 99215

== ENCOUNTER 2023-10-18 09:57 | Outpatient (AMB) | payer MEDICARE, SELFPAY ==
[2023-10-18 10:01] VITALS: BP 133/67; PULSE 72; RESP 12; O2SAT 99; BMI 25.8
--- NOTE | 2023-10-18 10:01 | A.OFFVIS_ITS ---
Vital Signs 10/18/23 10:01 Height 5 ft 10 in Weight 180 lb BMI 25.8 BP 133/67 Blood Pressure Location Lt brachial Position Sitting Respiration 12 Pulse 72 Pulse Source Pulse Oximeter Pulse Oximetry (%) 99 Oxygen Delivery Method Room Air Intake Visit Reasons: T12 INTERCOSTAL NB Allergies empagliflozin [From Jardiance] Adverse Reaction (Severe, Verified 10/18/23 10:02) ketoacidosis Medication List - Last Reconciled 10/18/23 by Martha Payan LPN acetaminophen 325 mg PO QID PRN atorvastatin (Lipitor) 40 mg PO BEDTIME blood sugar diagnostic (Accutrend Glucose test strips) As directed blood-glucose meter (Accu-Chek Guide Glucose Meter) As directed cholecalciferol (vitamin D3) 50 mcg PO DAILY coenzyme Q10 (Ultra CoQ10) 300 mg PO DAILY fluoride (sodium) 1.1% (Denta 5000 Plus) 1 appl PO BID gabapentin 600 mg PO BID insulin glargine (Lantus Solostar U-100 Insulin) 22 units subcut BID lidocaine 5% 1 patch topical DAILY lidocaine-prilocaine 2.5-2.5 % 1 appl topical ONCE pen needle, diabetic (1st Tier Unifine Pentips Plus) As directed semaglutide 0.5 mg subcut QWEEK tafluprost (PF) 0.0015% (Zioptan (PF)) 1 drp ophthalmic (eye) .twiceaday HPI HPI T12 INTERCOSTAL NB: Details: 72-year-old male who presents today to the office for a T10 intercostal nerve block. Denies any recent cough, cold, infection, fever or other significant changes in medical history since last office visit. Past procedures: 09/30/23: 30-minute application of topical capsaicin 8%: % relief. 07/01/23: 30-minute application of topical capsaicin 8%: no relief yet. 04/01/23: 30-minute application of topical capsaicin 8%: no relief yet. 02/20/23: Percutaneous Spinal Cord Stimulator Trial, Lumbar: no relief. 05/14/22: Trigger point injections, bilateral: no relief. [facility] Medical History (Updated 11/04/23 @ 12:42 by Jack Allison MD) Elevated cholesterol Lumbar spondylosis Prostate cancer Neuropathy, diabetic CKD (chronic kidney disease) Arthritis Diabetes Anemia Surgical History Hx laparoscopic cholecystectomy History of back surgery Hx of hemorrhoidectomy Hx of prostatectomy History of lobectomy of thyroid Family History Father Diabetes Skin cancer (melanoma) Stroke Social History Alcohol intake: never Patient Tobacco Use Status: Never used Tobacco Review of Systems Const All systems reviewed & are unremarkable except as noted in HPI and below Physical Exam Vital Signs: Last Vital Signs Pulse 72 10/18/23 10:01 Resp 12 10/18/23 10:01 BP 133/67 10/18/23 10:01 Pulse Ox 99 10/18/23 10:01 Oxygen Delivery Method Room Air 10/18/23 10:01 BMI result Body Mass Index 25.8 General: Appears afebrile. Alert and oriented. Mood and affect appropriate. Follows and participates in conversation appropriately. Respiratory effort is unlabored. Able to transition from sit to stand unassisted. Ambulates with bilaterally normal heel strike and toe off. Office Procedures Nerve Block Details: Bilateral T10 intercoastal nerve block, ultrasound guided. After obtaining written consent, pre-procedure time-out was completed. The patient was placed in a left lateral position. The relevant levels of the intercostal nerves were physically palpated corresponding to the patient's pain and marked. Using ultrasound, the appropriate landmarks including the rib, intercostal muscles and pleura were identified. The skin was anesthetized with 1% lidocaine. A 21-gauge 80 mm echostim needle was advanced under sonographic guidance in proximity to each of the intercostal nerves. Aspiration was negative for heme and air. 2 cc of ropivacaine 0.5% mixed with 10 mg Kenalog was injected around each of the targeted nerves. The needle was removed, skin cleansed and a sterile bandage was applied. The patient tolerated the procedure well and no complications were encountered. Following the procedure, the patient's vital signs and respiration were stable. The patient was discharged home in good condition with post-procedural instructions. Time Out: Immediately prior to the procedure, the following was verbally confirmed that there is a signed consent form and that the correct patient, planned procedure, site and side are consistent with documentation and that necessary equipment and/or blood products are available prior to the start of the case. Complications: none EBL: <1 cc An ultrasound image of the injection was taken and stored in the permanent record. Procedure code (CPT) selection complete Results Reviewed Results Reviewed: No imaging is available for review. Assessment & Plan Assessment & Plan (1) Diabetic neuropathy: Code(s): E11.40 - Type 2 diabetes mellitus with diabetic neuropathy, unspecified Category: Medical Qualifiers: Diabetes mellitus type: type 2 Diabetes mellitus complication detail: diabetic polyneuropathy Qualified Code(s): E11.42 - Type 2 diabetes mellitus with diabetic polyneuropathy (2) Painful diabetic neuropathy: Code(s): E11.40 - Type 2 diabetes mellitus with diabetic neuropathy, unspecified Category: Medical (3) Spondylosis of thoracic spine: Code(s): M47.814 - Spondylosis without myelopathy or radiculopathy, thoracic region Category: Medical (4) Intercostal neuralgia: Code(s): G58.8 - Other specified mononeuropathies Category: Medical Plan Patient is status post bilateral T10 intercoastal nerve block, ultrasound guided. Patient tolerated procedure well and was discharged home in stable condition with discharge instructions. All questions were answered. We will follow-up in three weeks via telephone to assess response to therapy. A follow-up appointment was made during today's visit. Scribed for Dr. Allison by Qamar Masterson, medical radiation therapist, on 10/18/2023. I, Dr. Allison, have personally reviewed and agree with the information entered by the scribe.
== END 2023-10-18 10:25 | disposition home or self-care (01) ==
PROVIDERS: PCP Internal Medicine; Visit Provider Internal Medicine
DX: G58.8 Other specified mononeuropathies (principal); E11.42 Type 2 diabetes mellitus with diabetic polyneuropathy; M47.814 Spondylosis without myelopathy or radiculopathy, thoracic region
CPT/HCPCS: 64420; 76942

== ENCOUNTER → 2023-10-18 09:57 | Outpatient (BNVA) | payer MEDICARE, SELFPAY | PROVIDERS: PCP Internal Medicine; Visit Provider Internal Medicine | DX: E11.40 Type 2 diabetes mellitus with diabetic neuropathy, unspecified (principal); M47.814 Spondylosis without myelopathy or radiculopathy, thoracic region; G58.8 Other specified mononeuropathies | CPT/HCPCS: 64420; J2795; J3301 ==